=== PATIENT | female | born 1975 | race Two or more races ===

== ENCOUNTER 2024-02-01 16:00 | Outpatient (RCR) | payer MEDICAID, SELFPAY ==
--- NOTE | 2024-01-25 11:09 | PT.OIERPT ---
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 Pt reports pain of the surgery site which limits lifting heavy things and work duties. 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 30 lbs, L 75 lbs ? Wrist AROM:? Strength: ? Flexion: full? 4/5 ? Extension: 50 deg? 4/5 ? TTP: moderate of incision scar Thumb AROM: Extension: 50 deg Flexion: 20 deg Assessment: Pt presentation consistent with post op CTR and trigger thumb release. Pt ? has pain with resisted wrist flexion, incision is TTP and pt has ? 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 Pt requires skilled therapy to meet goals and has good rehab potential. Short Term and Penitentiary Goals 1. Ind with HEP ? 2. 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 3. Pt will tolerate work duties x8 hrs with <=1/10 pain in R hand ? 4. Improved thumb AROM to full and painfree ? 5. Decreased TTP from mod to min of R incision scar Treatment Plan 1. Manual therapy ? 2. Therex ? 3. Modalities as indicated, moist heat, ice, estim Frequency and Duration: Frequency and Duration: 1-2x a week for 12 visits Certification Dates: 01/25/24 to 04/22/24 Procedure Charges OP PT Eval Mod Complex 30 minutes: Yes
--- NOTE | 2024-02-01 16:51 | PT.ODAYNRPT ---
PT Outpatient Daily Note OP Daily Note Outpatient Physical Therapy Treatment Date: 01/29/24 Visit Reasons: Pain in RT hand Subjective: Same as time of evaluation Objective: See F/S for therex MT: STM incision scar x5' Assessment: Moderate TTP of incsion scar with MT Plan: Continue per POC Length of Time (minutes) of Treatment: 30 Minutes Procedure Charges Therapeutic Exercise 30 minutes: Yes
--- NOTE | 2024-02-01 16:52 | PT.ODAYNRPT ---
PT Outpatient Daily Note OP Daily Note Outpatient Physical Therapy Treatment Date: 02/01/24 Visit Reasons: Pain in RT hand Subjective: The hand hurts to use to push up with Objective: See F/S for therex MT: STM incision scar x5' Assessment: Moderate TTP of incsion scar with MT Plan: Continue per POC Length of Time (minutes) of Treatment: 30 Minutes Procedure Charges Therapeutic Exercise 30 minutes: Yes
== END 2024-02-13 23:59 | disposition home or self-care (01) ==
LOC: CPTX 16:00
DX: M79.641 Pain in right hand (principal); M79.644 Pain in right finger(s); Z98.890 Other specified postprocedural states
CPT/HCPCS: 97110; 97162

== ENCOUNTER 2024-03-13 08:30 | Outpatient (RCR) | payer MEDICAID, SELFPAY ==
--- NOTE | 2024-02-28 11:01 | PT.ODAYNRPT ---
PT Outpatient Daily Note OP Daily Note Outpatient Physical Therapy Treatment Date: 02/28/24 Visit Reasons: Pain in RT hand Subjective: Pt reports hand is doing ok, continues to have occasional pain. Objective: Please see flow sheet for ther ex list. Assessment: Pt tolerated interventions with minimal pain. Plan: Continue with pOC. Length of Time (minutes) of Treatment: 30 Minutes Procedure Charges Therapeutic Exercise 30 minutes: Yes
--- NOTE | 2024-03-07 17:20 | PT.ODAYNRPT ---
PT Outpatient Daily Note OP Daily Note Outpatient Physical Therapy Treatment Date: 03/07/24 Visit Reasons: Pain in RT hand Subjective: The thumb (thenar eminence) hurts to put pressure on it but the wrist doesn't hurt Objective: See F/S for therex [employer] strength: R: 35 lbs, L: 78 lbs Assessment: Good motor control of R hand with therex Plan: Continue per POC Length of Time (minutes) of Treatment: 30 Minutes Procedure Charges Therapeutic Exercise 30 minutes: Yes
== END 2024-03-15 23:59 | disposition home or self-care (01) ==
LOC: CPTX 08:30
DX: M79.644 Pain in right finger(s) (principal); M79.641 Pain in right hand; M65.311 Trigger thumb, right thumb; G56.01 Carpal tunnel syndrome, right upper limb
CPT/HCPCS: 97110

== ENCOUNTER → 2024-03-26 | Outpatient (BNVA) | payer MEDICAID, SELFPAY | END | disposition home or self-care (01) | PROVIDERS: PCP Physician Assistant; Referring Provider Physician Assistant; Visit Provider Urology | DX: Z09 Encounter for follow-up examination after completed treatment for conditions other than malignant neoplasm (principal); Z87.440 Personal history of urinary (tract) infections; N18.2 Chronic kidney disease, stage 2 (mild) | CPT/HCPCS: 81003; 99212; G0463 ==

== ENCOUNTER 2024-03-27 09:00 | Outpatient (RCR) | payer MEDICAID, SELFPAY ==
--- NOTE | 2024-03-20 09:20 | PT.ODAYNRPT ---
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 Plan: Continue per POC Length of Time (minutes) of Treatment: 30 Minutes Procedure Charges Therapeutic Exercise 30 minutes: Yes
--- NOTE | 2024-03-27 09:39 | PT.ODAYNRPT ---
PT Outpatient Daily Note OP Daily Note Outpatient Physical Therapy Treatment Date: 03/27/24 Visit Reasons: right hand pain Subjective: The thumb (thenar eminence) hurts to put pressure on it but the wrist doesn't hurt Objective: See F/S for therex Assessment: Good motor control of R hand with therex but moderate tissue irritability with HH chores cleaning house. Plan: Continue per POC Length of Time (minutes) of Treatment: 30 Minutes Procedure Charges Therapeutic Exercise 30 minutes: Yes
== END 2024-04-12 23:59 | disposition home or self-care (01) ==
LOC: CPTX 09:00
DX: M79.641 Pain in right hand (principal); M79.644 Pain in right finger(s); M65.311 Trigger thumb, right thumb; Z98.890 Other specified postprocedural states
CPT/HCPCS: 97110

== ENCOUNTER → 2024-11-22 | Outpatient (CLI) | payer MEDICAID, SELFPAY ==
--- NOTE | 2024-11-22 14:15 | XR_ITS ---
Examination: Screening digital mammography, bilateral Computer aided detection 3-D breast Tomosynthesis, bilateral Date and time of exam: 11/23/2024, 8:27 a.m. Comparisons: April 2020 through February 2023 Indications: Screening Technique: Nonmagnified MLO, CC views of the breasts to been obtained, reconstructed from 3-D Tomosynthesis images. R2 computer aided detection program utilized for evaluation of suspicious masses and/or abnormal calcifications. 3-D Tomosynthesis images obtained. Technologist: Findings: The breasts are heterogeneously dense, which may obscure small masses. No evidence of abnormal masses or suspicious calcifications. Impression: BI-RADS category 1: Negative findings (within normal) Recommend 1 year follow-up mammogram
== END | disposition home or self-care (01) ==
LOC: CDIM 14:08
PROVIDERS: Referring Provider Nurse Practitioner Primary Care; Visit Provider Nurse Practitioner Primary Care
DX: Z12.31 Encounter for screening mammogram for malignant neoplasm of breast (principal); R92.313 Mammographic fatty tissue density, bilateral breasts; R92.1 Mammographic calcification found on diagnostic imaging of breast
CPT/HCPCS: 77063; 77067

== ENCOUNTER → 2024-11-23 | Outpatient (CLI) | payer MEDICAID, SELFPAY ==
--- NOTE | 2024-11-23 08:00 | XR_ITS ---
EXAMINATION: MRI temporomandibular joints without contrast Date and time: November 23, 2024, 0837 hours INDICATIONS: Jaw pain joint clicking and popping with chewing food 6 months Technique and findings: Axial, sagittal MRI images closed-mouth have been obtained No significant osteoarthritis of the temporomandibular joints Both right and left mandibular condyles exhibit satisfactory position in the temporal articulating fossa regions on these closed mouth views There are no open-mouth images The temporomandibular joint menisci appear displaced anteriorly bilaterally IMPRESSION: The temporomandibular joint menisci appear displaced anteriorly bilaterally Recommend this patient return for open mouth MRI temporomandibular joint views
== END | disposition home or self-care (01) ==
LOC: SMRI 07:48
PROVIDERS: PCP Nurse Practitioner Primary Care; Referring Provider Nurse Practitioner Primary Care; Visit Provider Nurse Practitioner Primary Care
DX: M26.69 Other specified disorders of temporomandibular joint (principal)
CPT/HCPCS: 70336